=== PATIENT | male | born 1960 | race Caucasian/White ===

== ENCOUNTER 2020-01-09 06:05 | Inpatient (IN) | payer MEDICAID, SELFPAY ==
[~2020-01-09] VITALS: Ht 170.2 cm; Wt 49.0 kg
[2020-01-09] VITALS (25 sets, daily range): BP systolic 81–148; BP diastolic 52–79
--- NOTE | 2020-01-09 06:05 | NUR ---
PT BIBA ALS. TAKEN TO BED 2. RT AT BEDSIDE.
[2020-01-09] MEDS ORDERED: NACL 0.9% 1,000 ML IV ONE (06:15)
[2020-01-09] MEDS ORDERED: MEROPENEM 1,000 MG in NACL 0.9% 100 ML IV ONE (06:15)
[2020-01-09] MEDS ORDERED: VANCOMYCIN 1,000 MG in DEXTROSE 5% 250 ML IV ONE (06:15)
[2020-01-09] MEDS ORDERED: MEROPENEM 1,000 MG VIAL IV ONE (06:18)
--- NOTE | 2020-01-09 06:30 | NUR ---
59 YO M [place] [facility] [facility] A POOR HISTORIAN. PER REPORT PT WAS DSATING IN LOW TO MID 80S [place] [facility] [place] WAS SENT TO ER. PT PRESENTS TO ER WITH TRACH IN PLACE. PT WAS IMMEDIATELY PLACED ON VENTILATOR BY RT AND SET ON HIS REGULAR VENT SETTINGS. S1 S2 HEARD. LUNG SOUNDS ARE CLEAR THROUGHOUT. EQUAL CHEST RISE AND FALL. PT APPEARS ANXIOUS, RESTLESS, AND DIAPHORETIC. PER REPORT PT TESTED POSITIVE FOR GONZALEZ VIRUS IN OCTOBER AND TESTED NEGATIVE FOR GONZALEZ VIRUS IN DECEMBER. PT PLACED ON WINDOWS SERVER ENGINEER. BED LCOKED AND IN LOWEST POSITION. SIDE RAILS X2. UNKNOWN MED HX UNKNOWN RX NKA
--- NOTE | 2020-01-09 06:30 | NUR ---
BLOOD DRAWN AND TAKEN TO LAB.
[2020-01-09 06:34] LABS: BASOPHILS # (AUTO) 0.1 K/uL (0.00-0.22); BASOPHILS % (AUTO) 0.3 % (0.0-2.0); EOSINOPHILS # (AUTO) 0.1 K/uL (0-0.4); EOSINOPHILS % (AUTO) 0.5 % (0.0-4.0); HEMATOCRIT 32.7 % (36-52); HEMOGLOBIN 10.5 g/dL (12.0-18.0); LYMPHOCYTES # (AUTO) 1.2 K/uL (2.0-11.5); LYMPHOCYTES % (AUTO) 7.8 % (20.5-51.1); MEAN CORPUSCULAR HEMOGLOBIN 30 pg (27-31); MEAN CORPUSCULAR HGB CONC 32 g/dL (33-37); MEAN CORPUSCULAR VOLUME 91.9 fL (80-94); MONOCYTES % (AUTO) 6.2 % (1.7-9.3); NEUTROPHILS # (AUTO) 13.2 K/uL (1.8-7.7); NEUTROPHILS % (AUTO) 85.2 % (42.2-75.2); PLATELET COUNT (AUTO) 523 K/uL (140-450); RED BLOOD CELL COUNT(AUTO) 3.56 MIL/uL (4.20-6.10); RED CELL DISTRIBUTION WIDTH 15.8 % (11.6-13.7); WHITE BLOOD COUNT (AUTO) 15.5 K/uL (4.8-10.8)
--- NOTE | 2020-01-09 06:41 | NUR ---
RAD AT BEDSIDE.
[2020-01-09] MEDS ORDERED: AMIO200T5 GT (06:54)
[2020-01-09] MEDS ORDERED: DOCU-299 GT (06:54)
[2020-01-09] MEDS ORDERED: APIX5TAB GT (06:54)
[2020-01-09] MEDS ORDERED: PRO5 GT (06:54)
[2020-01-09] MEDS ORDERED: NUTR-583 GT (06:54)
[2020-01-09] MEDS ORDERED: ACET-2619 GT (06:54)
[2020-01-09] MEDS ORDERED: INSU100S5 SQ (06:54)
[2020-01-09 07:03] LABS: PROTHROMBIN TIME 10.5 secs (10.8-13.4)
[2020-01-09 07:08] LABS: ALBUMIN 2.3 g/dL (3.4-5.0); ANION GAP 9.3 (8-16); CARBON DIOXIDE 36.2 mmol/L (21-32); CREATININE 0.6 mg/dL (0.6-1.3); POTASSIUM 4.5 mmol/L (3.5-5.1); TOTAL BILIRUBIN 0.3 mg/dL (0.0-1.0)
[2020-01-09] MEDS ORDERED: ACETAMINOPHEN 325 MG TAB PO PRN (07:10)
[2020-01-09] MEDS: NACL 0.9% 1,000 ML IV SCH ×2 (07:10→20:09)
[2020-01-09] MEDS ORDERED: ONDANSETRON 4 MG/2 ML VIAL IM/IVP PRN (07:10)
[2020-01-09] MEDS ORDERED: DOCUSATE SODIUM 100 MG GELCAP PO PRN (07:10)
--- NOTE | 2020-01-09 07:30 | NUR ---
REPORT GIVEN TO MOMO SIEGEL. TRANSFER OF CARE AT THIS TIME.
--- NOTE | 2020-01-09 07:33 | NUR ---
RECEIVED REPORT FROM MOMO TSAI AND [facility]
[2020-01-09] MEDS ORDERED: LORazepam 2 MG/ML VIAL IVP ONE (07:50)
--- NOTE | 2020-01-09 08:16 | NUR ---
PT LAYING IN BED AND APPEARS TO BE ANXIOUS. PT IS DIAPHORETIC AT THIS TIME. BOTH SIDE RAILS UP AND BED IN LOWEST POSITION FOR SAFETY.
--- NOTE | 2020-01-09 08:52 | NUR ---
TRANSFERRED TO ICU-2 ON VENTILATOR WITH SAME SETTINGS WITH OXYGEN LINE CONNECTED TO E-TANK SATURATION 98% TOLERATED TRANSFER WELL WITHOUT COMPLICATIONS
--- NOTE | 2020-01-09 09:00 | NUR ---
RECEIVED PT FROM ER. PT AAOX0, AGITATED, DR LUCIA NOTIFIED VIA PHONE. RESPIRATIONS SHALLOW AND LABORED ON TRACH TO VENT IN ACPC MODE O2 100%, R14 PEEP 14. SKIN INTACT. IV SITE IN R FA 20G PATENT AND ASYMPTOMATIC INFUSING PER ORDER. WAHL IN PLACE. G TUBE IN PLACE. PT PRESENTS WITH FEVER OF 101.3, TYLENOL GIVEN AND COOLING MEASURES IN PLACE, WILL REASSESS. DROPLET PRECAUTIONS IN PLACE FOR R/O COVID-19. PT HAD BOWEL MOVEMENT, BROWN FORMED WITH BLOOD. SAFETY MEASURES IN PLACE, BED IN LOW POSITION. WILL MONITOR CLOSELY.
--- NOTE | 2020-01-09 09:04 | NUR ---
Patient will be admitted to care of DR MURRAY. Admited to ICU. Will go to room 8. Belongings list completed. Report to MOMO BELTRAN.
--- NOTE | 2020-01-09 09:33 | NUR ---
PATIENT HAS BEEN SCREENED AND CATEGORIZED HIGH NUTRITION RISK. PATIENT WILL BE SEEN WITHIN 1-2 DAYS OF ADMISSION. 01/09/20-01/10/[address]
[2020-01-09 10:02] LABS: CHOL/HDL RATIO 3.4 (1-4.5); FREE T4 (FREE THYROXINE) 1.52 ng/dL (0.76-1.46); MAGNESIUM 2.1 mg/dL (1.8-2.4); THYROID STIMULATING HORMONE 2.42 uIU/mL (0.34-3.74)
--- NOTE | 2020-01-09 10:05 | NUR ---
CALLED TO ICU DUE TO PT DESATURATING INTO 70%. PT ON A/C VC PEAK PRESSURING IN 60'S. PT SWITCHED TO A/C PC Pinsp 18, R 14, iTIME 0.60 DUE TO INVERSE I:E RATIO AND FIO2 100%. PT TACHYPNEIC IN 40'S AND VERY AGITATED MOVING AROUND IN BED.
--- NOTE | 2020-01-09 10:28 | NUR ---
PEEP INCREASED TO [id number] DUE TO DESATURATION. WILL CONTINUE TO MONITOR.
--- NOTE | 2020-01-09 10:33 | NUR ---
SPOKE W/ DR. LUCIA IN REGARDS OF RESTRAINTS.
--- NOTE | 2020-01-09 10:40 | NUR ---
CALLED NOTIFIED DR. LUCIA THAT PATIENT IS VERY AGITATED RESTLESS AND DIAPHORETIC. HESAID HE AWARE AND WORKING ON IT.
[2020-01-09] MEDS ORDERED: MIDAZOLAM MDV 100 MG in NACL 0.9% 80 ML IV PRN (10:45)
[2020-01-09 10:51] LABS: APPEARANCE,URINE CLEAR (CLEAR); BILIRUBIN,URINE NEGATIVE (NEGATIVE); BLOOD, URINE TRACE-I (NEGATIVE); COLOR,URINE YELLOW (YELLOW); LEUKOCYTE ESTERASE ,URINE NEGATIVE (NEGATIVE); NITRITE, URINE NEGATIVE (NEGATIVE); PH,URINE 5.5 (5.0-9.0); UGLUCOSE NEGATIVE (NEGATIVE)
[2020-01-09] MEDS ORDERED: VANCOMYCIN 1,000 MG in DEXTROSE 5% 250 ML IV SCH (10:55)
[2020-01-09] MEDS ORDERED: ALBUTEROL SULFATE/IPRATROPIU 3 ML SOL IH PRN (11:00)
[2020-01-09] MEDS ORDERED: MORPHINE SULFATE 2 MG/ML SYR IVP PRN (11:10)
[2020-01-09] MEDS ORDERED: KCL 20 MEQ/WATER INJ PREMIX 200 ML IV PRN (11:10)
[2020-01-09 11:21] LABS: BARBITURATE, URINE NEGATIVE ng/ml (NEG <=200); BENZODIAZEPINE, URINE POSITIVE ng/mL (NEG <=200); CANNABINOID, URINE NEGATIVE ng/mL (NEG <=50); COCAINE, URINE NEGATIVE ng/mL (NEG <=300); OPIATE, URINE NEGATIVE ng/mL (NEG <=2000); PHENCYCLIDINE SCREEN,URINE NEGATIVE ng/mL (NEG <=25)
--- NOTE | 2020-01-09 11:39 | NUR ---
VENT ADJUSTMENTS MADE PER AND ABG RESULTS. A/C PC Pinsp 22, R18, PEEP 12 AND FIO2 90%. KEEP SPO2 >90% PT SPO2 99% AT THIS TIME. WILL CONTNUE TO MONITOR. ADEQUATE VT FOR PT BASED ON IBW.
--- NOTE | 2020-01-09 11:42 | NUR ---
PT REPOSITIONED AT THIS TIME, VAP ORAL CARE GIVEN. TEMP RETAKEN, 98.9 PT NO LONGER AFEBRILE.
[2020-01-09] MEDS: PIPERACILLIN/TAZOBACTAM 3.375 GM in DEXTROSE 5% 50 ML IV SCH ×2 (12:00→18:00)
[2020-01-09] MEDS ORDERED: MORPHINE SULFATE 2 MG/ML SYR IVP SCH (12:00)
--- NOTE | 2020-01-09 13:09 | NUR ---
HELD MORPHINE FOR AGITATION SINCE PT IS NO LONGER AGITATED AFTER LOWERING TEMPERATURE. WILL CONTINUE TO MONITOR.
[2020-01-09] MEDS ORDERED: PROPOFOL 1000 MG/100 ML PREMIX 100 ML IV PRN (13:15)
[2020-01-09] MEDS: ALBUTEROL SULFATE/IPRATROPIU 3 ML SOL IH SCH ×2 (13:18→19:29)
--- NOTE | 2020-01-09 15:49 | NUR ---
PT IN BED ASLEEP, NO DISTRESS NOTED. MEDICATIONS ADMINISTERED PER ORDER. WILL CONTINUE TO MONITOR.
--- NOTE | 2020-01-09 16:50 | NUR ---
PER ABG RESULTS VENT CHANGES MADE: PC Pinsp 22, R18, PEEP 10 AND FIO2 60%. NURSE AWARE.
--- NOTE | 2020-01-09 17:49 | NUR ---
PT REMOVED IV, IV INSERTED IN R AC 20G PATENT AND FLUSHED. VAP ORAL CARE GIVEN. REPOSITIONED AT THIS TIME. SAFETY MEASURES IN PLACE.
--- NOTE | 2020-01-09 18:39 | NUR ---
ZOSYN ADMINSITERED PER ORDER
--- NOTE | 2020-01-09 19:15 | NUR ---
REPORT GIVEN TO NIGHT NURSE FOR CONTINUITY OF CARE.
--- NOTE | 2020-01-09 19:30 | NUR ---
PT LYING IN BED, AWAKE. A/O X1. FRENCH SPEAKING ONLY. DENIES PAIN AT THIS TIME. TRACH TO VENT WITH SETTINGS FOLLOWS: ACPC: FIO2 55%, RT 18, PEEP 10. SPO2 100%. LUNG SOUNDS COARSE THROUGHOUT. NO JVD OBSERVED. + S1, S2 UPON AUSCULTATION. BOWEL SOUNDS ACTIVE X4 WITH G-TUBE IN PLACE INFUSING GLUCERNA 1.2 @ 10ML/HR, WITH A GOAL OF 40 ML/HR. + PLACEMENT VERIFIED VIA AIR BOLUS. ZERO RESIDUAL NOTED. ABD SOFT, NON-DISTENDED, AND NON-TENDER. WAHL IN PLACE DRAINING CLEAR, STRAW-COLORED, URINE TO GRAVITY. 20G PERIPHERAL IV WITH SALINE-LOCK TO RT AC PATENT INFUSING NS @ 85 ML/HR. SOFT WRIST RESTRAINTS NOTED D/T PT ATTEMPTING TO REMOVE IV AND TUBING. NO INJURIES NOTED, CAP REFILL WITHIN 3 SEC. PT ABLE TO MOVE ALL EXTREMITIES WITH DECREASED STRENGTH NOTED TO BLE. PEDAL PULSES PALPABLE. SKIN WARM, DRY, AND INTACT. SAFETY PRECAUTIONS IN PLACE WITH BED LOW AND LOCKED. CALL LIGHT IN EASY REACH. WILL CONT TO MONITOR FOR CHANGES.
[2020-01-09] MEDS ORDERED: SODIUM FERRIC GLUCONATE 125 MG in NACL 0.9% 100 ML IV SCH (20:00)
[2020-01-09] MEDS ORDERED: PANTOPRAZOLE 40 MG INJ VIAL IVP SCH (20:05)
[2020-01-09] MEDS ORDERED: CRUSHER, PILL MC ONE (20:17)
[2020-01-09] MEDS: APIXABAN 2.5 MG TAB GT SCH (21:39)
--- NOTE | 2020-01-09 22:20 | NUR ---
2ND COVID SWAB COLLECTED @ THIS TIME, AND TAKEN TO LAB. AWAITING RESULTS.
[2020-01-10] VITALS (19 sets, daily range): BP systolic 86–108; BP diastolic 50–65
[2020-01-10] MEDS: PIPERACILLIN/TAZOBACTAM 3.375 GM in DEXTROSE 5% 50 ML IV SCH ×5 (00:04→23:49)
--- NOTE | 2020-01-10 00:30 | NUR ---
VAP ORAL CARE PROVIDED AT THIS TIME. FLACC 0. REPOSITIONED WITH PRESSURE AREAS OFFLOADED. WILL CONT TO MONITOR FOR CHANGES.
[2020-01-10] MEDS: ALBUTEROL SULFATE/IPRATROPIU 3 ML SOL IH SCH ×4 (01:33→20:04)
[2020-01-10] MEDS: HYDROcodone/APAP 7.5/325 MG 1 TAB PO PRN (02:11)
--- NOTE | 2020-01-10 02:15 | NUR ---
FLACC 5. REPOSITIONED, NON-PHARMACOLOGIC INTERVENTIONS INEFFECTIVE. PRN NORCO ADMINISTERED ORDERED. NO ASE AT THIS TIME. SAFETY PRECAUTIONS IN PLACE. BED LOW AND LOCKED. CALL LIGHT REMAINS WITHIN REACH. WILL FOLLOW-UP.
[2020-01-10] MEDS: NACL 0.9% 1,000 ML IV SCH ×2 (05:34→17:25)
--- NOTE | 2020-01-10 05:34 | NUR ---
INDY HUNG AND RUNNING. PT TOLERATING WELL.
[2020-01-10 06:30] LABS: ANION GAP 8.1 (8-16); CREATININE 0.6 mg/dL (0.6-1.3); POTASSIUM 4.1 mmol/L (3.5-5.1)
--- NOTE | 2020-01-10 06:30 | NUR ---
DR LUCIA AT BEDSIDE AT THIS TIME. UPDATED ON PT CONDITION.
[2020-01-10 06:34] LABS: BASOPHILS % (AUTO) 0.3 % (0.0-2.0); EOSINOPHILS # (AUTO) 0.1 K/uL (0-0.4); EOSINOPHILS % (AUTO) 0.5 % (0.0-4.0); HEMATOCRIT 24.5 % (36-52); HEMOGLOBIN 7.9 g/dL (12.0-18.0); LYMPHOCYTES # (AUTO) 1.6 K/uL (2.0-11.5); LYMPHOCYTES % (AUTO) 12.2 % (20.5-51.1); MEAN CORPUSCULAR HEMOGLOBIN 30 pg (27-31); MEAN CORPUSCULAR HGB CONC 32 g/dL (33-37); MEAN CORPUSCULAR VOLUME 94.1 fL (80-94); MONOCYTES % (AUTO) 7.4 % (1.7-9.3); NEUTROPHILS # (AUTO) 10.6 K/uL (1.8-7.7); NEUTROPHILS % (AUTO) 79.6 % (42.2-75.2); PLATELET COUNT (AUTO) 347 K/uL (140-450); RED CELL DISTRIBUTION WIDTH 15.6 % (11.6-13.7); WHITE BLOOD COUNT (AUTO) 13.3 K/uL (4.8-10.8)
[2020-01-10 06:49] LABS: MAGNESIUM 1.9 mg/dL (1.8-2.4); PHOSPHORUS 3.5 mg/dL (2.5-4.9)
--- NOTE | 2020-01-10 07:10 | NUR ---
PT REMAINS ON DOCUMENTED SETTINGS, VENT CHECK DONE, SX: BLOOD TINGE SECRETIONS, TRACH IS SECURED AND INTACT. VENT IS PLUGGED INTO RED OUTLET, ALARMS ON AND FUNCTIONING, AMBU BAG AT BEDSIDE.
--- NOTE | 2020-01-10 07:15 | NUR ---
REPORT GIVEN TO DAYSHIFT RN FOR CONTINUITY OF CARE.
--- NOTE | 2020-01-10 07:16 | NUR ---
RECEIVED BEDSIDE REPORT FROM MACHINE LEAD BURNER NURSE, PT STABLE, NO DISTRESS NOTED, AWAKE ALERT, ABLE TO LET NEEDS KNOWN, PT ON TRACH TO VENT, ACPC FIO2 55% PEEP 10, O2 SAT 100%, IV TO R FA 20G, PATENT, INTACT, INFUSING WELL, PT CALM AND COOPERATIVE, GT IN PLACE WITH FEEDING AT 20ML/HR, TOLERATING WELL, RESIDUAL 5ML, WAHL CATH IN PLACE DRAINING YELLOW URINE. PT ON RESTRAINTS, NO S/S OF INJURY NOTED, INITIAL ASSESSMENT DONE, ALL SAFETY PRECAUTION MET, CALL LIGHT WITHIN REACH, WILL CONTINUE TO MONITOR.
[2020-01-10 08:07] LABS: FOLIC ACID > 20.00 ng/mL (>3.0); T4 (THYROXINE) 8.6 ug/dL (4.5-12.0)
--- NOTE | 2020-01-10 08:52 | NUR ---
DISCHARGE PLANNING: THIS IS A 59 Y/O MALE PATIENT FROM [facility], WHO WAS BROUGHT IN DUE TO SOB, DESATURATION AND FEVER. PAST MEDICAL HISTORY INCLUDE A FIB, CHRONIC RESPIRATORY FAILURE, DYSPHAGIA, DM, COVID 19. INITIAL DIAGNOSIS OF RESPIRATORY FAILURE, PNA, R/O COVID 19. CURRENT LABS INCLUDE WBC 13.3, H/H 7.9/24.5, NA/K 139/4.1, BUN/CREA 16/0.6. UDS SHOWED POSITIVE FOR BENZO. COVID (-) X1, 2ND TEST PENDING. INF A AND B (-). ON ZOSYN. CHEST X RAY ON ADMISSION SHOWED BILATERAL PATCHY INFILTRATES, COARSE INTERSTITIAL MARKINGS. PULMO AND CARDIO CONSULTS IN PLACE. DC PLAN BACK TO [facility] ONCE STABLE. Addendum: 01/11/20 at 1148 by Zenaida Stanton ON TELE STATUS, TRACH TO VENT, FIO2 30%, O2 SAT94%. CURRENT LABS INCLUDE WBC 13.0, H/H 8.1/25.6, NA/K 142/3.8, BUN/CREA 11/0.5. 2ND COVID TEST (+). ON ZOSYN AND ELIQUIS. SPUTUM CS SHOWED SERRATIA MARCESCENS. CARDIO, ID AND PULMO CONSULTS IN PLACE. Addendum: 01/13/20 at 0849 by Zenaida Stanton PER ALTAGRACIA OF [facility], THEY ARE NOT A COVID FACILITY AND NOT ABLE TO TAKE THE PATIENT BACK. I ASKED HER IF THEY CAN HELP FIND PLACEMENT FOR THE PATIENT. SHE STATED SHE REACHED OUT TO [facility] LUNA AND WILL FOLLOW UP TODAY. CONTACTED EVITA LUNA AT [phone], REQUESTED TO GET TRANSFERRED TO [facility], NO ANSWER. LEFT MESSAGE WILL FOLLOW UP. Addendum: 01/13/20 at 1105 by Mignon Man FAXED PATIENTS CLINICALS TO EVITA LUNA, [facility], AND [facility]. SPOKE [facility] IRMA AT [phone], FAX # [phone]. SHE STATED THAT THEY ACCEPT COVID POSITIVE PATIENTS WILL FOLLOW UP. Addendum: 01/13/20 at 1130 by Mignon Man CM FOLLOWED UP WITH IRMA AT [facility] THEY ARE REVIEWING AND WILL CONTACT ME BACK. SHE STATED THAT SHE DOES NOT BELIEVE THEY COULD ACCEPT THIS PATIENT DUE TO HIS INSURANCE Addendum: 01/13/20 at 1631 by Zenaida Stanton CM PER ALTAGRACIA [facility], SHE FOUND A [facility] [phone] THAT IS ABLE TO ACCEPT COVID POSITIVE PATIENTS. SHE STATED THAT SHE ALREADY FAXED THE REFERRAL TO [phone] AND THEY ARE IN THE PROCESS OF REVIEWING IT. WILL UPDATE US IF THEY ARE ABLE TO ACCEPT. Addendum: 01/13/20 at 4318 by Zenaida Stanton CM CHARGE NURSE AND DR. JOSÉ MIGUEL MCMANUS AWARE. Addendum: 01/14/20 at 1413 by Liz Aquino CM DC PLANNING: CALLED ALTAGRACIA HINES [facility] STATED [facility] TOLD HER THERE IS NO ONE ON THE WEEKEND TO REVIEW THE CASE AND TO FOLLOW UP ON THURSDAY. PER ALTAGRACIA WILL LOOK FOR ANOTHER FACILITY AND CALL BACK CM TO FOLLOW. Addendum: 01/16/20 at 1005 by Liz Aquino CM DC PLANNING CALLED [facility] [phone] SPOKE WITH MICHAEL JAMIL PT'S CLINICAL , PER MICHAEL REQUESTED IV ABX TO BE CHANGED TO PO WILL DISCUSS WITH THE COMPLAINT OPERATOR AND WILL CALL BACK SPOKE WITH DR KHARI COFFEY , LEFT A MESSAGE FOR MICHAEL MILLER TO FOLLOW. Addendum: 01/16/20 at 1147 by Liz Aquino CM DC PLANNING CALLED [facility] SPOKE WITH MICHAEL AND NOTIFIED HER OK WITH BACTRIM DS PO BID FOR 7 DAYS. PER MICHAEL ARRANGING THE ROOMS AND WAITING FOR THE ADMIN TO SAY ISHMAEL MILLER TO FOLLOW. Addendum: 01/16/20 at 1608 by Liz Aquino CM dc planning: [facility]ED [facility] SPOKE WITH MICHAEL STATED SHE IS UNABLE TO TAKE PATIENT TODAY BECAUSE OF STAFFING ISSUE. CALLED ALTAGRACIA AT [facility] NOTIFIED HER MICHAEL IS NOT TAKING PATIENT PER ALTAGRACIA THEY DON'T HAVE ISOLATION BED WILL TALK TO HER ADMINISTRATION AND CALL BACK. Addendum: 01/16/20 at 1612 by Liz Aquino CM DC PLANNING CHECKED WITH MINO AT [facility] STATED THEY DON'T HAVE SUB ACUTE BUT WILL CHECK WITH THE [facility] . SPOKE WITH DR MURRAY STATED HE WILL CALL [facility] ADMINISTRATION. PER DR LUCIA [facility] WILL TAKE THE PATIENT TOMORROW. CM TO FOLLOW. Addendum: 01/16/20 at 1656 by Mignon Man CM FAXED PATIENTS PACKET TO [facility]. Addendum: 01/17/20 at 0926 by Liz Aquino CM DC PLANNING: CALLED [facility] ,SPOKE WITH MICHAEL STATED WILL TAKE THE PATIENT TODAY BUT SHE CAN'T GIVE ME THE BED NUMBER NOW BECAUSE SHE NEEDS TO CHANGE ROOMS, SHE ALSO TALKED TO ALTAGRACIA AT [facility] AND PROMISED SHE WILL TAKE PATIENT TODAY. CALLED MINO AT [facility] STATED DON'T HAVE SUB-ACUTE BUT WILL TRY TO ONE OF THEIR SISTER'S SNF AND WILL CALL BACK . FAXED TO NIRALI MARIE , PAUL TO FOLLOW Addendum: 01/17/20 at 1537 by Liz Aquino CM DC PLANNING: RECEIVED A CALL FROM [facility] SPOKE WITH MICHAEL STATED WE CAN ARRANGED TRANSPORT PASSENGER BOOKING CLERK TIME 6PM STILL ARRANGING THE ROOM ,WILL CALL BACK ONCE THE ROOM IS READY. ARRANGED TRANSPORT WITH [facility] PASSENGER BOOKING CLERK TIME 6PM CM TO FOLLOW Addendum: 01/17/20 at 1608 by Liz Aquino CM DC PLANNING: PT IS ACCEPTED AT [facility] THE ADDRESS IS [address] [place] [address] TEL # [phone]. PT IS GOING TO ROOM 130A PASSENGER BOOKING CLERK TIME 6PM WITH [facility]. NOTIFIED PATRICIA BARR.
[2020-01-10] MEDS: APIXABAN 2.5 MG TAB GT SCH ×2 (09:25→21:07)
[2020-01-10] MEDS: PANTOPRAZOLE 40 MG INJ VIAL IVP SCH (09:25)
[2020-01-10] MEDS: AMIODARONE 200 MG TAB GT SCH (09:25)
--- NOTE | 2020-01-10 09:25 | NUR ---
DUE MEDICATION ADMINISTERED, PT TOLERATED WELL, FC DONE. PT RESTING, CALL LIGHT WITHIN REACH, WILL CONTINUE TO MONITOR.
--- NOTE | 2020-01-10 11:03 | NUR ---
SALES AND MARKETING EXECUTIVE NOTE: Basic Screen: Yes High Risk DC Screen [place]: JESS HERNANDES Home Relationship: SON Pre-Admission Living Arrangements: SNF Other: [facility] Prior ADL Total/Dependent Current Home Health Name/Tel: N/A Current DME/02 Name/Tel: BED BOUND Current Hospice Name/Tel: N/A Current Dialysis Name/Tel: N/A Healthcare Decision Maker: Patient Advance Directive No Physician Orders for Life Sustaining Treatment Form No Patient/Family Have Educational Needs No Discipline: Case Mgt/Social Svcs Tentative Discharge Plan/Destination: SNF/ECF Other: [facility] Will require assistance post discharge: No Referred to Bomb Loader: No Tentative Discharge Plan Summary: PATIENT IS A 59-YEAR-OLD MALE ADMITTED FOR RESPIRATORY FAILUREL. PATIENT HAS PMHX OF AFIB, CHRONIC RESPIRATORY FAILURE, DYSPHAGIA, COVID 19, AND DM. PATIENT WAS ADMITTED FROM [facility]. SW CONTACTED FRIEDA FROM [facility] [phone]. PER FRIEDA, PATIENT IS LONGTERM AND ON A BED HOLD. PATIENT IS ALERT AND CAN MAKE NEEDS KNOWN AND IS ORIENTED ONLY TO TIME AND PLACE. FRIEDA REPORTED THAT PATIENT'S HEALTHCARE DECISION MAKER IS DARYL HERNANDES [phone]. FRIEDA STATED THAT PATIENT IS TRACH TO VENT AND REQUIRES TOTAL ASSISTANCE WITH ADLS. TENTATIVE DISCHARGE PLAN IS FOR PATIENT TO RETURN HOME. NO FURTHER NEEDS IDENTIFIED. Signature: MARIA A PATRICK Date: Jan 10, 2020 Time: 11:02
--- NOTE | 2020-01-10 12:29 | NUR ---
DUE MEDICATION ADMINISTERED, PT TOLERATED WELL, NO DISTRESS NOTED, CALL LIGHT WITHIN REACH, WILL CONTINUE TO MONITOR.
--- NOTE | 2020-01-10 13:20 | NUR ---
TITRATED FIO2 TO 50%. PT SHOW NO SIGN OF DISTRESS AND TOLERATED CHANGE. SPO2 CURRENTLY READING 98% WILL CONTINUE TO MONITOR.
--- NOTE | 2020-01-10 16:13 | NUR ---
01/10/20 INITIAL ASSESSMENT COMPLETED PLEASE REFER TO NUTRITION ASSESSMENT UNDER CARE ACTIVITY FOR ESTIMATED NUTRITIONAL NEEDS. 1. RECOMMEND INCREASING GLUCERNA GOAL RATE TO 45 ML/HR X 24 HR -PROVIDES 1296 CALORIES, 65 GM OF PROTEIN WHICH MEETS 100% OF ESTIMATED NUTRIENT NEEDS 2. RECOMMEND TO CHANGE FREE WATER FLUSH TO [address] TO FOLLOW-UP 2-3 DAYS, HIGH RISK [address]NE SI[address]
--- NOTE | 2020-01-10 16:25 | NUR ---
PT REMAINS ON DOCUMENTED SETTINGS, VENT CHECK DONE. TRACH IS SECURED AND INTACT, NO DISTRESS NOTED AT THIS TIME. VENT PLUGGED INTO RED OUTLET, ALARMS ON AND FUNCTIONING, AMBU BAG AT BEDSIDE.
[2020-01-10 16:52] LABS: FERRITIN 736 ng/mL (30 - 400); TRANSFERRIN 145 mg/dL (200 - 370)
--- NOTE | 2020-01-10 18:25 | NUR ---
DUE MEDICATION ADMINISTERED, PT TOLERATED WELL, NO DISTRESS NOTED, CLEANED PT, CALL LIGHT WITHIN REACH, WILL CONTINUE TO MONITOR.
--- NOTE | 2020-01-10 19:13 | NUR ---
ENDORSED PT TO DEBEADER NURSE, PT STABLE, NO DISTRESS NOTED.
--- NOTE | 2020-01-10 19:14 | NUR ---
REPORT RECEIVED FROM AM NURSE AT BEDSIDE. PT IN STABLE CONDITION. AAOX1-2. FLACC 0. NO SOB ON TRACH TO VENT. VENT SETTINGS AC P/C FIO2@45%, RR 18, PEEP 10, AND O2 SAT@100%. AFEBRILE. PT IS BEDBOUND. PT HAS RESTRAINTS. PT HAS GTUBE. GTUBE FEEDINGS GLUCERNA 1.2@45ML/HR WITH 100ML H2O FLUSH Q6H. IV SITE R FA 20G RUNNING NS@100ML/HR PATENT AND INTACT. SKIN WARM, DRY, AND INTACT WITH NO OPEN WOUNDS. BED LOCKED IN LOW POSITION. CALL BAUTISTA WITHIN REACH. SAFETY PRECAUTION IN PLACE. ALL NEEDS MET AT THIS TIME.
--- NOTE | 2020-01-10 20:03 | NUR ---
RECEIVED REPORT FROM AM SHIFT. PATIENT SEEN AND ASSESSED. PATIENT TRACH TO VENT WITH PORTEX SIZE 7 AND SECURED WITH TRACH TIE. AUSCULTATION REVEALS BILATERAL COARSE BREATH SOUNDS. NOTICED ADEQUATE BILATERAL CHEST RISE AND FALL. PATIENT ON VENT SETTINGS AC/PC 22,R 18, +10, 45% WITH SPO2 OF 97%. VENT PLUGGED IN RED OUTLET, HOB > 30 DEGREES, AMBU BAG AT BEDSIDE, AND ALARMS SET AND AUDIBLE. PATIENT IS IN NO RESPIRATORY DISTRESS AT THIS TIME. HHN TX GIVEN ORDERED VIA INLINE AND PATIENT TOLERATED WELL WITH NO ADVERSE REACTION. SUCTION PINK TINGE SECRETIONS FROM TRACH TUBE. AIRWAY IS PATIENT. WILL CONTINUE TO MONITOR PATIENT.
--- NOTE | 2020-01-10 21:07 | NUR ---
NANCI GIVEN THROUGH SOFYAUBE. GLUCERNA FEEDING GIVEN. Addendum: 01/10/20 at 2125 by Lupillo Green RN ORAL CARE GIVEN. Addendum: 01/10/20 at 2227 by Lupillo Green RN FEEDING CHANGED.
--- NOTE | 2020-01-10 21:56 | NUR ---
TITRATED FiO2 FROM 45% TO 40% WITH SPO2 OF 97%. PATIENT TOLERATING WELL. WILL CONTINUE TO MONITOR PATIENT.
--- NOTE | 2020-01-10 23:49 | NUR ---
INDY HUNG AND RUNNING.
[2020-01-11] VITALS (18 sets, daily range): BP systolic 91–138; BP diastolic 52–82
--- NOTE | 2020-01-11 | NUR ---
ORAL CARE DONE.
[2020-01-11] MEDS: ALBUTEROL SULFATE/IPRATROPIU 3 ML SOL IH SCH ×2 (01:35→07:30)
--- NOTE | 2020-01-11 02:45 | NUR ---
PT WATCHING TV COMFORTABLY IN BED. NO S/S OF DISTRESS NOTED.
[2020-01-11] MEDS: NACL 0.9% 1,000 ML IV SCH ×2 (05:00→17:00)
[2020-01-11] MEDS: PIPERACILLIN/TAZOBACTAM 3.375 GM in DEXTROSE 5% 50 ML IV SCH ×2 (05:30→12:44)
--- NOTE | 2020-01-11 05:30 | NUR ---
INDY HUNG AND RUNNING.
[2020-01-11 06:15] LABS: BASOPHILS % (AUTO) 0.2 % (0.0-2.0); EOSINOPHILS # (AUTO) 0.2 K/uL (0-0.4); EOSINOPHILS % (AUTO) 1.2 % (0.0-4.0); HEMATOCRIT 25.6 % (36-52); HEMOGLOBIN 8.1 g/dL (12.0-18.0); LYMPHOCYTES # (AUTO) 3.2 K/uL (2.0-11.5); LYMPHOCYTES % (AUTO) 24.7 % (20.5-51.1); MEAN CORPUSCULAR HEMOGLOBIN 30 pg (27-31); MEAN CORPUSCULAR HGB CONC 32 g/dL (33-37); MEAN CORPUSCULAR VOLUME 94.1 fL (80-94); MONOCYTES # (AUTO) 0.9 K/uL (0.8-1.0); MONOCYTES % (AUTO) 6.6 % (1.7-9.3); NEUTROPHILS # (AUTO) 8.7 K/uL (1.8-7.7); NEUTROPHILS % (AUTO) 67.3 % (42.2-75.2); PLATELET COUNT (AUTO) 419 K/uL (140-450); RED BLOOD CELL COUNT(AUTO) 2.72 MIL/uL (4.20-6.10); RED CELL DISTRIBUTION WIDTH 15.8 % (11.6-13.7)
--- NOTE | 2020-01-11 06:39 | NUR ---
PATIENT STILL REMAINS ON VENT SUPPORT. AIRWAY IS PATENT. EQUAL CHEST RISE AND FALL. TUBE IS SECURED AND INTACT. PATIENT IN NO DISTRESS AT THIS TIME. WILL CONTINUE TO MONITOR.
[2020-01-11 06:40] LABS: ANION GAP 10.9 (8-16); CARBON DIOXIDE 33.9 mmol/L (21-32); CREATININE 0.5 mg/dL (0.6-1.3); POTASSIUM 3.8 mmol/L (3.5-5.1)
--- NOTE | 2020-01-11 07:08 | NUR ---
REPORT GIVEN TO AM NURSE AT BEDSIDE. PT IN STABLE CONDITION.
--- NOTE | 2020-01-11 07:09 | NUR ---
RECEIVED BEDSIDE REPORT FROM INDEPENDENT AGENT MUSIC EDUCATION NURSE, PT STABLE, NO DISTRESS NOTED, ALERT, AWAKE, ABLE TO FOLLOW COMMANDS, PT ON TRACH TO VENT, FIO2 40%, NO SOB NOTED, SATURATION AT 99%, IV TO R FA 20G PATENT INTACT, INFUSING WELL, G TUBE IN PLACE, WITH FEEDING, TOLERATING WELL, WAHL CATH IN PLACE, DRAINING TO GRAVITY. PT STATED HAVING PAIN WHEN ASKED, FLACC 6, WILL GIVE PAIN MEDICATION, INITIAL ASSESSMENT DONE, ALL SAFETY PRECAUTION MET, CALL LIGHT WITHIN REACH, WILL CONTINUE TO MONITOR.
--- NOTE | 2020-01-11 07:30 | NUR ---
PT REMAINS ON DOCUMENTED SETTINGS. TRACH IS SECURED AND INTACT. VENT CHECK DONE. SX: BLOOD TINGE SECRETIONS. VENT PLUGGED INTO RED OUTLET, ALARMS ON AND FUNCTIONING, AMBU BAG AT BEDSIDE. WILL CONTINUE TO MONITOR.
[2020-01-11] MEDS: HYDROcodone/APAP 7.5/325 MG 1 TAB PO PRN (07:47)
[2020-01-11] MEDS: AMIODARONE 200 MG TAB GT SCH (09:12)
[2020-01-11] MEDS: APIXABAN 2.5 MG TAB GT SCH ×2 (09:12→21:00)
[2020-01-11] MEDS: ASCORBIC ACID 500 MG TAB PO SCH (09:13)
[2020-01-11] MEDS: PANTOPRAZOLE 40 MG INJ VIAL IVP SCH (09:13)
[2020-01-11] MEDS: ZINC SULF 220 MG CAP PO SCH (09:13)
--- NOTE | 2020-01-11 09:13 | NUR ---
DUE MEDICATION ADMINISTERED, PT TOLERATED WELL, NO DISTRESS NOTED, WILL CONTINUE TO MONITOR.
--- NOTE | 2020-01-11 10:02 | NUR ---
PT CALM AND COOPERATIVE, RESTRAINS TAKEN OFF. PT RESTING, NO DISTRESS NOTED, ASKED PT TO NOT PULL OF ANY EQUIPMENT, PT NODDED UNDERSTANDING. WILL CONTINUE TO MONITOR.
--- NOTE | 2020-01-11 12:44 | NUR ---
ZOSYN DUE ADMINISTERED, PT TOLERATED WELL, NO DISTRESS NOTED, CALL LIGHT WITHIN REACH, WILL CONTINUE TO MONITOR.
--- NOTE | 2020-01-11 15:44 | NUR ---
CLEANED AND REPOSITIONED PT, PT TOLERATED WELL, NO DISTRESS NOTED, CALL LIGHT WITHIN REACH, WILL CONTINUE TO MONTIOR.N
--- NOTE | 2020-01-11 16:35 | NUR ---
PT REMAINS ON DOCUMENTED SETTINGS, TRACH SECURED AND INTACT. VENT CHECK DONE. VENT PLUGGED INTO RED OUTLET, ALARMS ON AND FUNCTIONING, AMBU BAG AT BEDSIDE.
--- NOTE | 2020-01-11 19:25 | NUR ---
ENDORSED PT TO MANUSCRIPTS ARCHIVIST NURSE, PT RESTING, NO DISTRESS NOTED, CALL LIGHT WITHIN REACH.
--- NOTE | 2020-01-11 19:59 | NUR ---
RECEIVED REPORT FROM AM SHIFT. PATIENT SEEN AND ASSESSED. PATIENT TRACH TO VENT WITH PORTEX SIZE 7 AND SECURED WITH TRACH TIE. AUSCULTATION REVEALS BILATERAL COARSE BREATH SOUNDS. NOTICED ADEQUATE BILATERAL CHEST RISE AND FALL. PATIENT ON VENT SETTINGS AC/PC 22,R 18, +10, 35% WITH SPO2 OF 95%. VENT PLUGGED IN RED OUTLET, HOB > 30 DEGREES, AMBU BAG AT BEDSIDE, AND ALARMS SET AND AUDIBLE. PATIENT IS IN NO RESPIRATORY DISTRESS AT THIS TIME. PRN TX NOT INDICATED AT THIS TIME. SUCTION PINK TINGE SECRETIONS FROM TRACH TUBE. AIRWAY IS PATIENT. WILL CONTINUE TO MONITOR PATIENT.
--- NOTE | 2020-01-11 20:00 | NUR ---
RECEIVED REPORT FROM DAY SHIFT RN. PT TRACH TO VENT. A/C PC FIO2 35%, PINSP 22, RATE 18, PEEP 10. SKIN WARM, DRY AND INTACT. ORAL MUCOSA PINK AND MOIST. RESPIRATION EVEN AND UNLABORED. PULSES PALPABLE. WAHL CATHETER PATENT, DRAINING TO GRAVITY. G-TUBE IN PLACE, AUSCULTATED, POSITIVE PLACEMENT. 10 MLS RESIDUALS. ON GLUCERNA 1.2 @ 45MLS/HR WITH FWF OF 100MLS/6HR. PERIPHERAL IV ON THE RIGHT FOREARM 20G INFUSING 100ML/HR NS. DROPLET PRECAUTION MAINTAINED. HOB 30 DEGREES, BED IN LOWEST POSITION, SIDE RAILS UP. PT AFEBRILE. CALL BAUTISTA WITHIN REACH. SAFETY MEASURES OBSERVED. WILL CONTINUE TO MONITOR PT.
--- NOTE | 2020-01-11 22:00 | NUR ---
PT TURNED AND REPOSITIONED. ORAL CARE PROVIDED. CALL LIGHT WITHIN REACH. WILL CONTINUE TO MONITOR.
[2020-01-12] VITALS (17 sets, daily range): BP systolic 117–162; BP diastolic 34–109
[2020-01-12] MEDS: NACL 0.9% 1,000 ML IV SCH ×3 (00:06→18:00)
--- NOTE | 2020-01-12 00:12 | NUR ---
PT RESTING IN BED. NO CONCERNS AND COMPLAINTS MADE. WILL CONTINUE TO MONITOR.
--- NOTE | 2020-01-12 02:00 | NUR ---
TURNED AND REPOSITIONED, ORAL CARE PROVIDED, WAHL CARE, KEILA CARE DONE. NO CONCERNS AND COMPLAINTS MADE.
--- NOTE | 2020-01-12 05:30 | NUR ---
TITRATED PEEP FROM 10 cmH20 TO 8 cmH20 WITH SPO2 OF 93%. DR. SHEPARD WAS NOTIFIED. WILL CONTINUE TO MONITOR.
[2020-01-12 05:58] LABS: BASOPHILS % (AUTO) 0.4 % (0.0-2.0); EOSINOPHILS # (AUTO) 0.1 K/uL (0-0.4); EOSINOPHILS % (AUTO) 1.3 % (0.0-4.0); HEMATOCRIT 24.3 % (36-52); HEMOGLOBIN 7.8 g/dL (12.0-18.0); LYMPHOCYTES # (AUTO) 1.6 K/uL (2.0-11.5); MEAN CORPUSCULAR HEMOGLOBIN 30 pg (27-31); MEAN CORPUSCULAR HGB CONC 32 g/dL (33-37); MEAN CORPUSCULAR VOLUME 92.9 fL (80-94); MONOCYTES # (AUTO) 0.5 K/uL (0.8-1.0); MONOCYTES % (AUTO) 5.9 % (1.7-9.3); NEUTROPHILS # (AUTO) 6.7 K/uL (1.8-7.7); NEUTROPHILS % (AUTO) 74.4 % (42.2-75.2); PLATELET COUNT (AUTO) 417 K/uL (140-450); RED BLOOD CELL COUNT(AUTO) 2.61 MIL/uL (4.20-6.10); RED CELL DISTRIBUTION WIDTH 15.8 % (11.6-13.7)
[2020-01-12] MEDS ORDERED: LORazepam 1 MG TAB PO PRN (06:20)
--- NOTE | 2020-01-12 06:24 | NUR ---
PATIENT STILL REMAINS ON VENT SUPPORT. TRACH CARE COMPLETED. AIRWAY IS PATENT. EQUAL CHEST RISE AND FALL.TUBE IS SECURED AND INTACT. PATIENT IN NO DISTRESS AT THIS TIME. WILL CONTINUE TO MONITOR.
[2020-01-12 06:44] LABS: ANION GAP 8.8 (8-16); CARBON DIOXIDE 32.7 mmol/L (21-32); CREATININE 0.4 mg/dL (0.6-1.3); POTASSIUM 3.5 mmol/L (3.5-5.1)
--- NOTE | 2020-01-12 07:23 | NUR ---
PT STABLE. ENDORSED PT TO DAY SHIFT RN FOR CONTINUITY OF CARE.
--- NOTE | 2020-01-12 07:30 | NUR ---
RECEIVED REPORT FROM SURFACING MACHINE OPERATOR RN. PT TRACH TO VENT. A/C PC FIO2 35%, RATE 18, PEEP 8. PT AAOX2, SKIN WARM, DRY AND INTACT. BMX1 FORMED STOOL, MODERATE AMOUNT. RESPIRATION EVEN AND UNLABORED. PULSES PALPABLE. WAHL CATH DRAINING CLEAR YELLOW URINE. G-TUBE IN PLACE, 0 MLS RESIDUALS. ON GLUCERNA 45MLS/HR WITH FWF OF 100MLS/6HR. PERIPHERAL IV TO THE RIGHT FOREARM, 20G, INFUSING 100ML/HR NS. HOB 30 DEGREES, BED IN LOWEST POSITION, SIDE RAILS UP. AFEBRILE. CALL LIGHT WITHIN REACH.
[2020-01-12] MEDS: AMIODARONE 200 MG TAB GT SCH (08:01)
[2020-01-12] MEDS: FERROUS SULFATE 325 MG TABEC PO SCH (08:01)
[2020-01-12] MEDS: ASCORBIC ACID 500 MG TAB PO SCH (08:01)
[2020-01-12] MEDS: ZINC SULF 220 MG CAP PO SCH (08:01)
[2020-01-12] MEDS: PANTOPRAZOLE 40 MG INJ VIAL IVP SCH (08:01)
[2020-01-12] MEDS: APIXABAN 2.5 MG TAB GT SCH ×2 (08:02→21:00)
--- NOTE | 2020-01-12 08:30 | NUR ---
ORAL CARE DONE, SUCTION PERFORMED, SMALL AMOUNT BLOOD TINGED SECRETION.
--- NOTE | 2020-01-12 09:43 | NUR ---
PT HAS ANOTHER BM, FORM STOOL, MODERATE AMOUNT. PT WAS CLEANED, LINENS CHANGED.
--- NOTE | 2020-01-12 12:30 | NUR ---
PT'S FAMILY SENT A CELLPHONE. GAVE PHONE TO PT AND PT CALLED HIS SON.
--- NOTE | 2020-01-12 16:05 | NUR ---
SMALL AMOUNT OF PASTY STOOL. PT WAS CLEANED, CHUX CHANGED. PT ABLE TO ASSIST TURNING AND FOLLOWING COMMANDS.
--- NOTE | 2020-01-12 19:45 | NUR ---
PT AWAKE SITTING UP IN BED, FOLLOWING COMMANDS. PT HAS TRACH TO VENT @ 35% FIO2, DENIES CP/SOB, WHITE CREAMY SECRETIONS NOTED. DIMINISHED BREATH SOUNDS. NSR 80S, PALPABLE PERIPHERAL EXTREMITIES. ABD SOFT NON DISTENDED. PEG TUBE IN PLACE, PATENT. X 1 BM NOTED SMALL FORMED. WAHL CATH IN PLACE CLEAR YELLOW URINE. SKIN INTACT. IV TO R FA PATENT INTACT. BED LOCKED IN LOWEST POSITION. PT TURNING AND REPOSITIONING SELF. WILL CONTINUE TO OBSERVE.
--- NOTE | 2020-01-12 19:45 | NUR ---
RECEIVED PT ON DOCUMENTED SETTING. VENT PLUGGED INTO RED OUTLET. BMV AT BEDSIDE. TRACH IS SECURED AND INTACT. PT IS IN NO DISTRESS. WILL CONT TO MONITOR
[2020-01-13] VITALS (13 sets, daily range): BP systolic 95–143; BP diastolic 51–78
--- NOTE | 2020-01-13 | NUR ---
PT HAS EYES CLOSED, NO ACUTE DISTRESS NOTED. FLACC 0. WILL CONTINUE MONITOR
[2020-01-13] MEDS: NACL 0.9% 1,000 ML IV SCH ×2 (02:24→20:28)
--- NOTE | 2020-01-13 05:16 | NUR ---
LINEN CHANGED; BATH GIVEN. VAP ORAL CARE DONE. WILL CONTINUE TO OBSERVE.
--- NOTE | 2020-01-13 06:00 | NUR ---
RECEIVED BEDSIDE REPORT FROM KASH BARR. PT TRANSFERRED FROM ICU BED 8 TO ROOM 123A. PT IS CITIZEN OF [place] SPEAKING. PT APPEARS AAOX4 CAN MOUTH WORDS IN [place]. IS TRACH TO VENT. VENT SETTINGS: AC/VC FIO2 35% PEEP 8 RR 12. RR 33 AND SAT WELL 100%. SKIN INTACT. LUNG SOUNDS ARE DIMINISHED AT BASE. RT AT BEDSIDE SUCTION SMALL AMOUNT OF PINK TINGED SECRETIONS. PT WITH GTUBE WITH GLUCERNA AT 45ML/H FWF 100/Q4H. PT REQUESTING TO GET BG CHECKED. IV ON RAC 20G CURRENTLY SL D/T TX. ORDER FOR NS AT 100ML/H. PT IS COVID+. DX PNA. ISOLATION PER PROTOCOL. PT ON IV ABX. ORIENTED PT TO CALL LIGHT, ROOM, STAFF. SAFETY MEASURES ARE IN PLACE. CALL LIGHT IS WITHIN REACH. BELONGINGS WITHIN REACH.
--- NOTE | 2020-01-13 06:00 | NUR ---
REPORT GIVEN TO GEORGE BARR, NO ACUTE DISTRESS NOTED. PT TRANSPORTED TO 123B WITH RT AND RN.
[2020-01-13 06:05] LABS: BASOPHILS % (AUTO) 0.3 % (0.0-2.0); EOSINOPHILS # (AUTO) 0.3 K/uL (0-0.4); EOSINOPHILS % (AUTO) 3.9 % (0.0-4.0); HEMATOCRIT 23.2 % (36-52); HEMOGLOBIN 7.6 g/dL (12.0-18.0); LYMPHOCYTES # (AUTO) 1.8 K/uL (2.0-11.5); LYMPHOCYTES % (AUTO) 24.3 % (20.5-51.1); MEAN CORPUSCULAR HEMOGLOBIN 30 pg (27-31); MEAN CORPUSCULAR HGB CONC 33 g/dL (33-37); MEAN CORPUSCULAR VOLUME 91.6 fL (80-94); MONOCYTES # (AUTO) 0.6 K/uL (0.8-1.0); MONOCYTES % (AUTO) 8.6 % (1.7-9.3); NEUTROPHILS # (AUTO) 4.8 K/uL (1.8-7.7); NEUTROPHILS % (AUTO) 62.9 % (42.2-75.2); PLATELET COUNT (AUTO) 418 K/uL (140-450); RED BLOOD CELL COUNT(AUTO) 2.53 MIL/uL (4.20-6.10); RED CELL DISTRIBUTION WIDTH 15.9 % (11.6-13.7); WHITE BLOOD COUNT (AUTO) 7.6 K/uL (4.8-10.8)
--- NOTE | 2020-01-13 06:20 | NUR ---
IVF NOW INFUSING PER ORDERS. BG 111. GLUCERNA INFUSING PER ORDERS. ALL NEEDS MET AT THIS TIME. CALL LIGHT IS WITHIN REACH.
[2020-01-13 07:02] LABS: ANION GAP 8.5 (8-16); CARBON DIOXIDE 32.1 mmol/L (21-32); CREATININE 0.4 mg/dL (0.6-1.3); POTASSIUM 3.6 mmol/L (3.5-5.1)
--- NOTE | 2020-01-13 07:15 | NUR ---
RECEIVED BEDSIDE REPORT FROM FISH CLEANER MACHINE TENDER RN, GEORGE, FOR CONTINUITY OF CARE. PT. IS ALERT, AWAKE AND IN BED. [place] SPEAKING. AAOX4, ABLE TO MOUTH WORDS IN [place] AND MAKE NEEDS KNOWN. IS TRACH TO VENT. VENT SETTINGS: AC/VC FIO2 35% PEEP 8 RR 12. RR 33 AND SAT WELL 100%. SKIN INTACT. GTUBE IN PLACE WITH GLUCERNA AT 45ML/H WITH WATER FLUSH OF 100ML /Q4H. PT REQUESTING TO GET BG CHECKED. IV ON RAC 20G CURRENTLY WITH NS RUNNING AT 60ML/HR. PT IS COVID+. DX PNA. ISOLATION PER PROTOCOL. ORIENTED PT TO CALL LIGHT, ROOM, STAFF. SAFETY MEASURES ARE IN PLACE. CALL LIGHT IS WITHIN REACH. WILL CONTINUE TO MONITOR.
--- NOTE | 2020-01-13 07:25 | NUR ---
GAVE BEDSIDE REPORT TO DAY RN. PT ENDORSED IN STABLE CONDITION.
--- NOTE | 2020-01-13 08:50 | NUR ---
PT. IS CLEANED, TURNED, AND CHANGED. NO SIGNS OF DISTRESS NOTED. G-TUBE IN PLACE, NO RESIDUAL, FLUSHES WELL. DRESSING IS CHANGED, SHANNON VALVE CHANGED. V/S TAKEN AND IS WITHIN NORMAL LIMITS. PT. SHAKES HEAD FOR NO PAIN. PT. IS ABLE TO FOLLOW COMMANDS. WILL CONTINUE TO MONITOR.
[2020-01-13] MEDS: ASCORBIC ACID 500 MG TAB PO SCH (08:52)
[2020-01-13] MEDS: ZINC SULF 220 MG CAP PO SCH (08:53)
[2020-01-13] MEDS: AMIODARONE 200 MG TAB GT SCH (08:53)
[2020-01-13] MEDS: PANTOPRAZOLE 40 MG INJ VIAL IVP SCH (08:54)
[2020-01-13] MEDS: FERROUS SULFATE 325 MG TABEC PO SCH (08:54)
--- NOTE | 2020-01-13 09:00 | NUR ---
MORNING MEDICATIONS GIVEN. BP 105/76, HR 80. NO SIGNS OF DISTRESS NOTED. WILL CONTINUE TO MONITOR.
[2020-01-13] MEDS: APIXABAN 2.5 MG TAB GT SCH ×2 (09:27→20:28)
[2020-01-13] MEDS ORDERED: Rocephin IV ×2 (11:32→11:39)
[2020-01-13] MEDS ORDERED: FERR325E14 PO (11:33)
[2020-01-13] MEDS ORDERED: LORA-476 PO (11:36)
--- NOTE | 2020-01-13 12:00 | NUR ---
ZOFRAN IVP GIVEN FOR NAUSEA. NO SIGNS OF DISTRESS NOTED. WILL CONTINUE TO MONITOR.
--- NOTE | 2020-01-13 13:15 | NUR ---
AFTERNOON MEDICATIONS GIVEN. NO SIGNS OF DISTRESS NOTED. PT. IS ASLEEP AND IN BED. WILL CONTINUE TO MONITOR.
--- NOTE | 2020-01-13 14:50 | NUR ---
CALLED CASE MANAGEMENTHAILE, ON PT'S DISCHARGE PLAN FOR TODAY. NO NEW UPDATES ON PT'S PLACEMENT TO A SNF. WILL CONTINUE TO MONITOR.
--- NOTE | 2020-01-13 15:23 | NUR ---
01/13/20 FOLLOW UP COMPLETED PLEASE REFER TO NUTRITION ASSESSMENT UNDER CARE ACTIVITY FOR ESTIMATED NUTRITIONAL NEEDS. 1. CONTINUE GLUCERNA GOAL RATE TO 45 ML/HR X 24 HR -PROVIDES 1296 CALORIES, 65 GM OF PROTEIN WHICH MEETS 100% OF ESTIMATED NUTRIENT NEEDS 2. CONTINUE WATER FLUSH TO [address] TO FOLLOW-UP 2-3 DAYS, HIGH RISK WAYNE SIERRA, RD
--- NOTE | 2020-01-13 17:10 | NUR ---
PT. IS CHANGED, CLEANED, AND TURNED. NO SIGNS OF DISTRESS NOTED. PT. SHAKES HEAD INDICATING NO PAIN. WILL CONTINUE TO MONITOR.
--- NOTE | 2020-01-13 17:55 | NUR ---
PT ASLEEP AT THIS TIME NOT IN ANY DISTRESS. PT REMAINS ON DOCUMENTED VENT SETTINGS. TRACH IS SECURE WITH A PATENT AIRWAY. VENT ALARMS ON AND FUNCTIONING.
--- NOTE | 2020-01-13 18:40 | NUR ---
RECEIVED CRITICAL LAB OF POSITIVE COVID-19 FROM LAB. WILL REPORT TO MD. WILL CONTINUE TO MONITOR.
--- NOTE | 2020-01-13 19:15 | NUR ---
ENDORSED TO HOSPITAL INSURANCE CLERK NURSE, ZENAIDA, FOR CONTINUITY OF CARE.
--- NOTE | 2020-01-13 19:16 | NUR ---
RECEIVED BEDSIDE REPORT FROM DAY SHIFT NURSE, NITO FOR CONTINUITY OF CARE. PT. IS ALERT, AWAKE AND IN BED. PT TRACH TO VENT. VENT SETTINGS: AC/VC FIO2 35% PEEP 8 RR 12. SAT WELL 100%. SKIN INTACT. GTUBE IN PLACE WITH GLUCERNA AT 45ML/H WITH WATER FLUSH OF 100ML /Q4H. IV ON RAC 20G, PATENT, INTACT, AND ASYMPTOMATIC, CURRENTLY WITH NS RUNNING AT 60ML/HR. PT IS COVID+. DX PNA. ISOLATION PER PROTOCOL. SAFETY MEASURES ARE IN PLACE. CALL LIGHT IS WITHIN REACH. BED IN LOW POSITION. WILL CONTINUE TO MONITOR.
--- NOTE | 2020-01-13 20:28 | NUR ---
GIVEN ELIQUIS MD ORDERED. PT TOLERATED WELL. WILL CONTINUE TO MONITOR.
--- NOTE | 2020-01-13 22:59 | NUR ---
PROVIDED SUCTION 2TIMES, PT TOLERATED WELL.
[2020-01-14] VITALS: BP 110/65
--- NOTE | 2020-01-14 00:05 | NUR ---
VS CHECKED, WITHIN PT'S BASELINE. WILL CONTINUE TO MONITOR.
--- NOTE | 2020-01-14 02:12 | NUR ---
PT SLEEPING IN BED COMFORTABLY. NO ACUTE DISTRESS NOTED.
--- NOTE | 2020-01-14 03:47 | NUR ---
0330 TRACH CARE DONE . HME AND SXN MORALES CHANGED. PATIENT HAS BRIGHT RED BLOODY CLOTS.
[2020-01-14 04:00] VITALS: BP 115/68
--- NOTE | 2020-01-14 04:05 | NUR ---
VS CHECKED, WITHIN PT'S BASELINE. WILL CONTINUE TO MONITOR.
--- NOTE | 2020-01-14 06:56 | NUR ---
PT IN STABLE CONDITION. WILL ENDORSE PT TO DAY SHIFT NURSE FOR CONTINUOUS CARE.
--- NOTE | 2020-01-14 07:00 | NUR ---
RECEIVED REPORT FROM NIGHT NURSE FOR CONTINUITY OF CARE, PT IS STABLE, AAOX2, PT IS TRACH TO VENT, PT HAS RIGHT AC 20G INFUSING NORMAL SALINE AT 60 ML/H, SKIN INTACT, PT HAS A WAHL CATHETER, PT ON FEEDING TUBE WITH GLUCERNA AT 45 ML/H, BED IN LOW POSITION, SAFETY MEASURES IN PLACE, CALL LIGHT WITHIN REACH, ALL NEEDS MET, WILL CONTINUE TO MONITOR.
[2020-01-14 07:02] LABS: BASOPHILS # (AUTO) 0.1 K/uL (0.00-0.22); BASOPHILS % (AUTO) 1.2 % (0.0-2.0); EOSINOPHILS # (AUTO) 0.2 K/uL (0-0.4); EOSINOPHILS % (AUTO) 4.3 % (0.0-4.0); HEMATOCRIT 26.8 % (36-52); HEMOGLOBIN 8.7 g/dL (12.0-18.0); LYMPHOCYTES # (AUTO) 1.8 K/uL (2.0-11.5); LYMPHOCYTES % (AUTO) 30.8 % (20.5-51.1); MEAN CORPUSCULAR HEMOGLOBIN 30 pg (27-31); MEAN CORPUSCULAR HGB CONC 32 g/dL (33-37); MEAN CORPUSCULAR VOLUME 92.3 fL (80-94); MONOCYTES # (AUTO) 0.5 K/uL (0.8-1.0); MONOCYTES % (AUTO) 8.2 % (1.7-9.3); NEUTROPHILS # (AUTO) 3.2 K/uL (1.8-7.7); NEUTROPHILS % (AUTO) 55.5 % (42.2-75.2); PLATELET COUNT (AUTO) 466 K/uL (140-450); RED BLOOD CELL COUNT(AUTO) 2.91 MIL/uL (4.20-6.10); RED CELL DISTRIBUTION WIDTH 15.9 % (11.6-13.7); WHITE BLOOD COUNT (AUTO) 5.7 K/uL (4.8-10.8)
[2020-01-14 07:14] LABS: ANION GAP 7.1 (8-16); CARBON DIOXIDE 33.8 mmol/L (21-32); CREATININE 0.4 mg/dL (0.6-1.3); POTASSIUM 3.9 mmol/L (3.5-5.1)
[2020-01-14 08:00] VITALS: BP 97/63
[2020-01-14] MEDS ORDERED: BENZONATATE 100 MG CAPLF PO PRN (08:40)
[2020-01-14] MEDS: FERROUS SULFATE 325 MG TABEC PO SCH (09:19)
[2020-01-14] MEDS: AMIODARONE 200 MG TAB GT SCH (09:19)
[2020-01-14] MEDS: APIXABAN 2.5 MG TAB GT SCH ×2 (09:21→20:14)
[2020-01-14] MEDS: PANTOPRAZOLE 40 MG INJ VIAL IVP SCH (09:21)
[2020-01-14] MEDS: ASCORBIC ACID 500 MG TAB PO SCH (09:22)
[2020-01-14] MEDS: PHENAZOPYRIDINE 100 MG TAB PO SCH ×3 (09:22→17:23)
[2020-01-14] MEDS: ZINC SULF 220 MG CAP PO SCH (09:23)
[2020-01-14] MEDS: guaiFENesin DM 200/20 MG-10 ML 10 ML UDC PO PRN (09:23)
--- NOTE | 2020-01-14 09:46 | NUR ---
ADMINISTERED SCHEDULED MEDICATION, ROBITUSSIN FOR COUGH, MEDICATION EDUCATION PROVIDED, PT NODDED UNDERSTANDING, PT TOLERATED WELL, PT IS STABLE, NO SIGNS OF DISTRESS NOTED, TRACH TO VENT, CALL LIGHT WITHIN REACH
--- NOTE | 2020-01-14 11:20 | NUR ---
PT SITTING IN BED WATCHING TV, PT IS STABLE NO SIGNS OF DISTRESS NOTED, PT TRACH TO VENT, ALL NEEDS MET, CALL LIGHT WITHIN REACH.
[2020-01-14 12:00] VITALS: BP 114/69
[2020-01-14] MEDS: NACL 0.9% 1,000 ML IV SCH (13:34)
--- NOTE | 2020-01-14 13:48 | NUR ---
ADMINISTERED SCHEDULED MEDICATION, MEDICATION EDUCATION GIVEN, PT TOLERATED MEDICATION WELL, PT IS STABLE, NO SIGNS OF DISTRESS NOTED, PT TRACH TO VENT, ALL NEEDS MET, CALL LIGHT WITHIN REACH.
--- NOTE | 2020-01-14 15:17 | NUR ---
EMPTIED 1500 ML OF ORANGE URINE FROM THE WAHL CATH, PT IS STABLE, RESPIRATIONS ARE EVEN AND UNLABORED ON VENT, PT TRACH TO VENT, PT FEEDING TUBE IS ONGOING, ALL NEEDS MET AT THIS TIME, CALL LIGHT WITHIN REACH.
[2020-01-14 16:00] VITALS: BP 102/61
--- NOTE | 2020-01-14 17:38 | NUR ---
ADMINISTERED SCHEDULED MEDICATION, MEDICATION EDUCATION GIVEN, PT TOLERATED MEDICATION WELL. CHANGED PT FEEDING TUBE AND ATTACHED TO PT G-TUBE, PT TOLERATING FEEDING WELL, PT IS STABLE, TRACH TO VENT, NO SIGNS OF DISTRESS NOTED, CALL LIGHT WITHIN REACH.
--- NOTE | 2020-01-14 19:24 | NUR ---
GAVE REPORT TO NIGHT NURSE FOR CONTINUITY OF CARE, PT IS STABLE.
--- NOTE | 2020-01-14 19:25 | NUR ---
RECEIVED REPORT FORM AURELIANO RN DAYSHIFT NURSE AT BEDSIDE FOR CONTINUITY OF CARE, PT IN STABLE CONDITION.
[2020-01-14] MEDS ORDERED: INSULIN LISPRO SLIDING SCALE 100 UNITS/ML VIAL SUBQ PRN (19:50)
[2020-01-14] MEDS ORDERED: GLUCAGON 1 MG VIAL IVP PRN (19:50)
[2020-01-14] MEDS ORDERED: DEXTROSE 50% 50 ML SYR IVP PRN (19:50)
--- NOTE | 2020-01-14 19:50 | NUR ---
SPOKE WITH RESIDENT MD TAVAERZ REGARDING PT HX OF DM2 BUT NO FINGERSTICKS ORDERED. HE ORDERED, FINGERSTICK WELL S/S HUMALOG.
[2020-01-14 20:00] VITALS: BP 107/64
--- NOTE | 2020-01-14 20:20 | NUR ---
PT IN BED AOX2-3, PT IS TRACH TO VENT, PT RESPIRATIONS EVEN AND UNLABORED ON CURRENT VENT SETTINGS. LUNG SOUNDS DIMINISHED. PT HAS GT TUBE RUNNING GLUCERNA AT 45MLS/HR ORDERED. NO RESIDUAL NOTED. PT WAS SUCTIONED X2 VERY SCANT AMOUNT OF BLOOD TINGED PHLEGM. PT ALSO HAS WAHL CATHETER INTACT AND DRAINING BLOOD TINGED URINE. PT DENIES ANY PAIN. ALL FALLS PRECAUTIONS IN PLACE. V/S FOLLOWS: T 98.1 P 88 R 36 B/P 107/64 02 99% WITH ALL CURRENT VENT SETTINGS.
[2020-01-14] MEDS: BLOOD GLUCOSE MONITORING 1 DEV DEV FS SCH (20:49)
--- NOTE | 2020-01-14 21:00 | NUR ---
PT GIVEN ORDERED ELIQUIS VIA GT. WELL FINGERSTICK BLOOD GLUCOSE IS 118. ALL REQUESTED NEEDS ATTENDED.ALL FALLS AND ASPIRATIONS PRECAUTIONS IN PLACE.
--- NOTE | 2020-01-14 22:00 | NUR ---
PT TURNED AND REPOSITIONED IN BED, ALL REQUESTED NEEDS ATTENDED BY STAFF.
[2020-01-15] VITALS: BP_SYST 106; BP_SYST 99; BP_DIAS 58
--- NOTE | 2020-01-15 | NUR ---
PT IN BED RESTING NO S/S OF PAIN OR DISTRESS NOTED. V/S FOLLOWS: T 98.8 P 83 R 32 B/P 106/58 02 97% WITH ALL CURRENT VENT SETTINGS. ALL FLUIDS RUNNING ORDERED AND ALL ORDERED PRECAUTIONS IN PLACE.
[2020-01-15 04:00] VITALS: BP 99/58
--- NOTE | 2020-01-15 04:00 | NUR ---
PT IN BED, HE WAS TURNED AND REPOSITIONED IN BED V/S FOLLOWS; T 98.2 P 80 R 30 B/P 99/58 02 98% WITH ALL CURRENT VENT SETTINGS. GT RUNNING AT 45MLS/HR ORDERED. N/S FLUIDS RUNNING AT 60MLS/HR ORDERED. ALL ASPIRATIONS , FALLS AND DROPLET PRECAUTIONS IN PLACE.
--- NOTE | 2020-01-15 06:00 | NUR ---
NEW IV SITE PROVIDED TO RIGHT HAND 22G SALINE LOCKED AND 22G. FINGERSTICK IS 130, NO HUMALOG COVERAGE NEEDED.
[2020-01-15 06:43] LABS: BASOPHILS % (AUTO) 0.7 % (0.0-2.0); EOSINOPHILS # (AUTO) 0.2 K/uL (0-0.4); EOSINOPHILS % (AUTO) 3.7 % (0.0-4.0); HEMATOCRIT 26.1 % (36-52); HEMOGLOBIN 8.4 g/dL (12.0-18.0); LYMPHOCYTES # (AUTO) 1.8 K/uL (2.0-11.5); LYMPHOCYTES % (AUTO) 29.3 % (20.5-51.1); MEAN CORPUSCULAR HEMOGLOBIN 30 pg (27-31); MEAN CORPUSCULAR HGB CONC 32 g/dL (33-37); MEAN CORPUSCULAR VOLUME 92.5 fL (80-94); MONOCYTES # (AUTO) 0.6 K/uL (0.8-1.0); MONOCYTES % (AUTO) 9.8 % (1.7-9.3); NEUTROPHILS # (AUTO) 3.5 K/uL (1.8-7.7); NEUTROPHILS % (AUTO) 56.5 % (42.2-75.2); PLATELET COUNT (AUTO) 500 K/uL (140-450); RED BLOOD CELL COUNT(AUTO) 2.82 MIL/uL (4.20-6.10); WHITE BLOOD COUNT (AUTO) 6.2 K/uL (4.8-10.8)
[2020-01-15] MEDS: BLOOD GLUCOSE MONITORING 1 DEV DEV FS SCH ×4 (06:44→21:39)
[2020-01-15 07:06] LABS: ALBUMIN 1.9 g/dL (3.4-5.0); ANION GAP 8.5 (8-16); CARBON DIOXIDE 32.1 mmol/L (21-32); CREATININE 0.5 mg/dL (0.6-1.3); POTASSIUM 3.6 mmol/L (3.5-5.1); TOTAL BILIRUBIN 0.2 mg/dL (0.0-1.0)
--- NOTE | 2020-01-15 07:15 | NUR ---
RECEIVED REPORT FROM NIGHT NURSE FOR CONTINUITY OF CARE, PT IS STABLE, AAOX3, TRACH TO VENT, PT HAS RIGHT AC 20G INFUSING NORMAL SALINE AT 60 ML/H, RT HAND 22G ACCIDENTALLY DISLODGED, IV CATHETER INTACT, MINIMAL BLEEDING NOTED. SKIN INTACT, PT HAS A WAHL CATHETER DRAINING TO GRAVITY WITH YELLOW URINE, PT ON FEEDING TUBE WITH GLUCERNA AT 45 ML/H. SAFETY AND DROPLET PRECAUTIONS IN PLACE, PATIENT + COVID. BED LOCKED IN LOWEST POSITION. CALL LIGHT WITHIN REACH, WILL CONTINUE TO MONITOR PATIENT.
--- NOTE | 2020-01-15 07:28 | NUR ---
PT RECEIVED ON PC 22 f18 PEEP 8 35% VENT CHECK COMPLETED ROUGHLY 07:30 ALONG W/ PLACING NEW HME & NIELSEN PT SAT 99% HR 79 VENT PLUGGED INTO RED OUTLET BMV @ BEDSIDE
[2020-01-15 07:46] VITALS: BP 95/58
[2020-01-15] MEDS: NACL 0.9% 1,000 ML IV SCH ×2 (08:01→21:39)
[2020-01-15] MEDS: ASCORBIC ACID 500 MG TAB PO SCH (08:56)
[2020-01-15] MEDS: PANTOPRAZOLE 40 MG INJ VIAL IVP SCH (08:56)
[2020-01-15] MEDS: FERROUS SULFATE 300 MG/5 ML UDC GT SCH (08:56)
[2020-01-15] MEDS: ZINC SULF 220 MG CAP PO SCH (08:57)
[2020-01-15] MEDS: APIXABAN 2.5 MG TAB GT SCH ×2 (08:57→21:29)
[2020-01-15] MEDS: AMIODARONE 200 MG TAB GT SCH (08:57)
[2020-01-15] MEDS: PHENAZOPYRIDINE 100 MG TAB PO SCH ×3 (08:57→17:23)
--- NOTE | 2020-01-15 09:15 | NUR ---
GTUBE AUSCULTATED FOR PLACEMENT, 0ML OF RESIDUAL NOTED. PT REQUESTED FOR PRN COUGH MEDICATION. WILL GIVE REQUESTED. ORDERED MEDICATIONS CRUSHED AND GIVEN VIA GTUBE WITH 150 ML OF WATER. PATIENT TOLERATED MEDICATIONS WELL. PT HAS NO COMPLAINTS AT THIS TIME. SAFETY AND DROPLET PRECAUTIONS IN PLACE, CALL LIGHT WITHIN REACH, WILL CONTINUE TO MONITOR PATIENT.
[2020-01-15] MEDS: guaiFENesin DM 200/20 MG-10 ML 10 ML UDC PO PRN (09:25)
--- NOTE | 2020-01-15 10:40 | NUR ---
PATIENT'S SON, MICHEL, CALLED. UPDATED HIM WITH PLAN OF CARE AND POSSIBLE DISCHARGE. HE VERBALIZED UNDERSTANDING. PATIENT CURRENTLY RESTING IN BED COMFORTABLY. WILL CONTINUE TO MONITOR PATIENT.
[2020-01-15 12:50] VITALS: BP 101/65
--- NOTE | 2020-01-15 13:00 | NUR ---
BLOOD SUGAR 106, NO COVERAGE NEEDED. ORDERED MEDICATIONS GIVEN. PATIENT TOLERATED THEM WELL. PATIENT AWARE OF NEXT DOSE OF GUAIFENISEN. PATIENT HAS NO COMPLAINTS AT THIS TIME. SAFETY AND DROPLET PRECAUTIONS IN PLACE, CALL LIGHT WITHIN REACH. WILL CONTINUE TO MONITOR PATIENT.
[2020-01-15] MEDS ORDERED: MORPHINE SULFATE 2 MG/ML SYR IVP PRN (14:05)
[2020-01-15] MEDS: guaiFENesin 20 MG/ML UDC PO PRN (14:18)
--- NOTE | 2020-01-15 14:20 | NUR ---
PRN COUGH MEDICATION AND PRN PAIN MEDICATION GIVEN FOR PLEURITIC CHEST PAIN REQUESTED. PATIENT TOLERATED THEM WELL. WILL CONTINUE TO MONITOR PATIENT.
--- NOTE | 2020-01-15 15:00 | NUR ---
CALLED [facility] AND FOLLOW UP TRANSFER OF PATIENT, THEY SAID THEY DON'T KNOW ABOUT THE TRANSFER.
[2020-01-15 16:00] VITALS: BP 94/54
--- NOTE | 2020-01-15 17:30 | NUR ---
BLOOD SUGAR 98, NO COVERAGE NEEDED. ORDERED MEDICATION GIVEN. NEW TUBE FEEDING STARTED. PATIENT TOLERATED IT WELL. NO COMPLAINTS AT THIS TIME. WILL CONTINUE TO MONITOR PATIENT.
--- NOTE | 2020-01-15 19:00 | NUR ---
RECEIVED BEDSIDE REPORT FROM DAY SHIFT NURSE. PATIENT IS AWAKE, ALERT, AND COOPERATIVE. RESPIRATION EVEN UNLABORED ON TRACH TO VENT. SATING 98%. NO DISTRESS NOTED. SKIN IS WARM AND DRY. IV PATENT AND INTACT. G-TUBE FEEDING RUNNING 45CC. WAHL CATHETER DRAINING ORANGE URINE NOTED. PLAN OF CARE WAS DISCUSSED. ALL SAFETY MEASURE IN PLACE. BED IS AT LOW POSITION. CALL LIGHT WITHIN REACH. WILL CONTINUE TO MONITOR.
--- NOTE | 2020-01-15 19:05 | NUR ---
REPORT GIVEN TO TMD TEACHER ASSISTANT NURSE. PATIENT IN STABLE CONDITION.
[2020-01-15 20:00] VITALS: BP 107/60
--- NOTE | 2020-01-15 20:05 | NUR ---
INITIAL ASSESSMENT DONE. VITALS WERE TAKEN. CHECKED G-TUBE RESIDUAL OBTAINED 10CC. WILL CONTINUE TO MONITOR.
--- NOTE | 2020-01-15 21:39 | NUR ---
ALL SCHEDULED MEDS WERE GIVEN PER ORDER. NO ASE NOTED. WILL CONTINUE TO MONITOR.
--- NOTE | 2020-01-15 22:49 | NUR ---
SUCTIONED PATIENT. OBTAINED SMALL AMOUNT OF WHITE CREAMY SECRETION. WILL CONTINUE TO MONITOR.
[2020-01-16] VITALS: BP 111/51
--- NOTE | 2020-01-16 00:10 | NUR ---
VITALS WERE TAKEN. PATIENT IN STABLE CONDITION. NO DISTRESS NOTED. WILL CONTINUE TO MONITOR.
--- NOTE | 2020-01-16 02:58 | NUR ---
CHECKED PATIENT. PATIENT SLEEPING RESPIRATION EVEN UNLABORED ON TRACH TO VENT. SATING 98%. NO DISTRESS NOTED. WILL CONTINUE TO MONITOR.
[2020-01-16 04:00] VITALS: BP 90/60
--- NOTE | 2020-01-16 04:00 | NUR ---
VITALS WERE TAKEN. PATIENT IN STABLE CONDITION. NO DISTRESS NOTED. SUCTIONED PATIENT OBTAINED SMALL AMOUNT OF WHITE CREAMY SECRETION. WILL CONTINUE TO MONITOR
[2020-01-16 06:10] LABS: BASOPHILS % (AUTO) 0.5 % (0.0-2.0); EOSINOPHILS # (AUTO) 0.3 K/uL (0-0.4); EOSINOPHILS % (AUTO) 4.7 % (0.0-4.0); HEMOGLOBIN 8.6 g/dL (12.0-18.0); LYMPHOCYTES # (AUTO) 2.3 K/uL (2.0-11.5); LYMPHOCYTES % (AUTO) 33.9 % (20.5-51.1); MEAN CORPUSCULAR HEMOGLOBIN 31 pg (27-31); MEAN CORPUSCULAR HGB CONC 33 g/dL (33-37); MEAN CORPUSCULAR VOLUME 92.4 fL (80-94); MONOCYTES # (AUTO) 0.6 K/uL (0.8-1.0); MONOCYTES % (AUTO) 8.9 % (1.7-9.3); NEUTROPHILS # (AUTO) 3.5 K/uL (1.8-7.7); PLATELET COUNT (AUTO) 577 K/uL (140-450); RED BLOOD CELL COUNT(AUTO) 2.81 MIL/uL (4.20-6.10); RED CELL DISTRIBUTION WIDTH 16.2 % (11.6-13.7); WHITE BLOOD COUNT (AUTO) 6.8 K/uL (4.8-10.8)
[2020-01-16 06:37] LABS: ALBUMIN 2.1 g/dL (3.4-5.0); ANION GAP 7.6 (8-16); CARBON DIOXIDE 33.3 mmol/L (21-32); CREATININE 0.5 mg/dL (0.6-1.3); POTASSIUM 3.9 mmol/L (3.5-5.1); TOTAL BILIRUBIN 0.2 mg/dL (0.0-1.0)
[2020-01-16] MEDS: BLOOD GLUCOSE MONITORING 1 DEV DEV FS SCH ×4 (06:39→20:26)
--- NOTE | 2020-01-16 07:07 | NUR ---
ENDORSED PATIENT TO DAY SHIFT NURSE. PATIENT IN STABLE CONDITION.
--- NOTE | 2020-01-16 07:08 | NUR ---
RECEIVED REPORT FROM EVENT MANAGER NURSE DOE-MOMO. PT RESTING IN BED, AOX4-APHASIC, ITALIAN SPEAKING, ON TRACH TO VENT FIO2 28, WITH RIGHT AC #20G RUNNING NS @60ML/HR AND G-TUBE FEEDING GLUCERNA RUNNING 45ML/HR, WATER FLUSH Q8H- ZERO RESIDUAL. WAHL CATHETER IN PLACE. DISCUSSED PLAN OF CARE AND PT VERBALIZED UNDERSTANDING. CALL LIGHT WITHIN REACH. NO S/S OF RESPIRATORY DISTRESS OR DISCOMFORT NOTED AT THIS TIME. WILL CONTINUE TO MONITOR.
[2020-01-16 08:00] VITALS: BP 96/56
[2020-01-16] MEDS: AMIODARONE 200 MG TAB GT SCH (08:28)
[2020-01-16] MEDS: APIXABAN 2.5 MG TAB GT SCH ×2 (08:30→20:28)
[2020-01-16] MEDS: FERROUS SULFATE 300 MG/5 ML UDC GT SCH (08:30)
[2020-01-16] MEDS: PANTOPRAZOLE 40 MG INJ VIAL IVP SCH (08:31)
[2020-01-16] MEDS: ASCORBIC ACID 500 MG TAB PO SCH (08:32)
[2020-01-16] MEDS: PHENAZOPYRIDINE 100 MG TAB PO SCH ×3 (08:32→17:45)
--- NOTE | 2020-01-16 08:32 | NUR ---
SCHEDULED MEDICATIONS GIVEN AND TOLERATED WELL. CALL LIGHT WITHIN REACH. NO S/S OF RESPIRATORY DISTRESS OR DISCOMFORT NOTED AT THIS TIME. WILL CONTINUE TO MONITOR.
[2020-01-16] MEDS: ZINC SULF 220 MG CAP PO SCH (08:33)
--- NOTE | 2020-01-16 08:40 | NUR ---
CALLED TO BEDSIDE PT DESAT TO 88% PT WAS Sx W/ SMALL AMT CLR SECRETIONS PT IS SAT 96% @ FIO2 32% TITRATED FROM 28% HR 76 WILL CONTINUE TO MONITOR
--- NOTE | 2020-01-16 08:41 | NUR ---
VITAL SIGNS IMPROVED BP 96/56, HR 77, TEMP 98.4%, SPO2 96%
--- NOTE | 2020-01-16 09:10 | NUR ---
ASSISTED LINING SCRUBBER BELEN WITH LINEN CHANGE. PT TOLERATED WELL. CALL LIGHT WITHIN REACH. NO S/S OF RESPIRATORY DISTRESS OR DISCOMFORT NOTED AT THIS TIME. WILL CONTINUE TO MONITOR.
--- NOTE | 2020-01-16 09:12 | NUR ---
PT WAS RETURNED TO 28% FIO2 PT SAT 100% AT THIS TIME W/ NO DISTRESS NOTED
[2020-01-16] MEDS ORDERED: Rocephin IV (09:19)
[2020-01-16] MEDS ORDERED: SULF-59 PO (10:09)
[2020-01-16] MEDS: ALBUTEROL HFA MDI 90 MCG/ACTUATION 8 GM INH PRN (10:57)
--- NOTE | 2020-01-16 11:30 | NUR ---
BLOOD GLUCOSE 123- NO INSULIN COVERAGE NEEDED.
[2020-01-16 12:00] VITALS: BP 92/52
--- NOTE | 2020-01-16 12:45 | NUR ---
SCHEDULED MEDICATION PYRIDIUM AND ROCEPHIN GIVEN AND TOLERATED WELL. CALL LIGHT WITHIN REACH. NO S/S OF RESPIRATORY DISTRESS OR DISCOMFORT NOTED AT THIS TIME. WILL CONTINUE TO MONITOR.
--- NOTE | 2020-01-16 14:35 | NUR ---
01/16/20 RD FOLLOW UP COMPLETED PLEASE REFER TO NUTRITION ASSESSMENT UNDER CARE ACTIVITY FOR ESTIMATED NUTRITIONAL NEEDS. 1. CONTINUE GLUCERNA 1.2 @ 45 ML/HR X 24 HR -PROVIDES 1296 CALORIES, 65 GM OF PROTEIN WHICH MEETS 100% OF ESTIMATED NUTRIENT NEEDS 2. CONTINUE WATER FLUSH TO 100 ML Q4H 3. CONTINUE ZINC AND VITAMIN C DAILY 4. RD TO FOLLOW-UP 2-3 DAYS, HIGH RISK WAYNE SIERRA RD
--- NOTE | 2020-01-16 16:30 | NUR ---
BLOOD GLUCOSE 121. NO INSULIN COVERAGE NEEDED.
[2020-01-16] MEDS: NACL 0.9% 1,000 ML IV SCH (17:45)
--- NOTE | 2020-01-16 17:46 | NUR ---
SCHEDULED MEDICATION GIVEN AND TOLERATED WELL. NEW TUBE FEEDING STARTED. CALL LIGHT WITHIN REACH. NO S/S OF RESPIRATORY DISTRESS OR DISCOMFORT NOTED AT THIS TIME. WILL CONTINUE TO MONITOR.
[2020-01-16 18:53] VITALS: BP 100/50
--- NOTE | 2020-01-16 19:05 | NUR ---
1700 VENT CHECK NOT PERFORMED DUE TO BEING UN-AVAILABLE AT INTUBATION
--- NOTE | 2020-01-16 19:54 | NUR ---
RECEIVED BEDSIDE REPORT FROM DAY RN. PT IS AAOX4. [place] SPEAKING. PT APHASIC ABLE TO MOUTH WORDS. PT IS TRACH TO VENT. VENT SETTINGS:FIO2 28% RR 18 PEEP 8. SAT 95% RR HIGH 30. HR 86. PT IS ABLE TO USE CALL LIGHT AND MAKE NEEDS KNOWN. C/C SOB, FEVER, DX RESP FAILURE COVID +. ISOLATION PER PROTOCOL. IV ON RAC 20G IVF INFUSING PER ORDERS. WAHL DRAINING BRIGHT ORANGE URINE S/E OF PYRIDIUM. POC DISCUSSED WITH PT. CALL LIGHT IS WITHIN REACH. WILL CONTINUE TO MONITOR.
[2020-01-16 20:00] VITALS: BP 95/56
--- NOTE | 2020-01-16 20:28 | NUR ---
VSS. FRANCISCO MEDICATION GIVEN CRUSHED VIA G-TUBE. PT WITH NO RESIDUALS/ BG 112 NO COVERAGE NEED. PT REQUESTING COUGH MEDICINE.
[2020-01-16] MEDS: guaiFENesin 20 MG/ML UDC PO PRN (20:37)
--- NOTE | 2020-01-16 20:37 | NUR ---
ADMINISTERED PRN ROBITUSSIN FOR COUGH. SUCTION SMALL AMOUNT OF WHITE/CREAMY SECRETION. ASSIST PT WITH ORAL CARE PT ABLE TO BRUSH OWN TEETH. ALL NEEDS MET. CALL LIGHT IS WITHIN REACH. WILL CONTINUE TO MONITOR.
--- NOTE | 2020-01-16 21:45 | NUR ---
PT IS ON FACETIME WITH AND SON USING CELL PHONE. NO S/S OF DISTRESS. CALL LIGHT IS WITHIN REACH
[2020-01-17] VITALS: BP 97/56
--- NOTE | 2020-01-17 | NUR ---
VITAL SIGNS ARE WITHIN NORMAL LIMITS. ALL SAFETY MEASURES ARE IN PLACE. WILL CONTINUE TO MONITOR.
--- NOTE | 2020-01-17 02:09 | NUR ---
MADE HOURLY ROUNDS. PT IS AWAKE HOB ELEVATED AT 60 DEGREES REMAINS TRACH TO VENT WITH NO S/S OF DISTRESS. CALL LIGHT IS WITHIN REACH.
[2020-01-17 04:00] VITALS: BP 103/61
--- NOTE | 2020-01-17 04:14 | NUR ---
VITAL SIGNS ARE WITHIN NORMAL LIMITS. SUCTION SMALL AMOUNT OF PINK TINGED SECRETIONS. PT TOLERATED WELL. ALL SAFETY MEASURES ARE IN PLACE.
[2020-01-17] MEDS: BLOOD GLUCOSE MONITORING 1 DEV DEV FS SCH ×3 (06:19→16:42)
--- NOTE | 2020-01-17 06:22 | NUR ---
BG 120 NO COVERAGE NEEDED. ALL NEEDS MET AT THIS TIME. CALL LIGHT IS WITHIN REACH.
[2020-01-17 06:24] LABS: ANION GAP 6.8 (8-16); CREATININE 0.5 mg/dL (0.6-1.3); POTASSIUM 3.8 mmol/L (3.5-5.1)
[2020-01-17 06:28] LABS: BASOPHILS % (AUTO) 0.5 % (0.0-2.0); EOSINOPHILS # (AUTO) 0.3 K/uL (0-0.4); EOSINOPHILS % (AUTO) 4.3 % (0.0-4.0); HEMATOCRIT 25.2 % (36-52); HEMOGLOBIN 8.3 g/dL (12.0-18.0); MEAN CORPUSCULAR HEMOGLOBIN 31 pg (27-31); MEAN CORPUSCULAR HGB CONC 33 g/dL (33-37); MEAN CORPUSCULAR VOLUME 92.4 fL (80-94); MONOCYTES # (AUTO) 0.7 K/uL (0.8-1.0); MONOCYTES % (AUTO) 9.7 % (1.7-9.3); NEUTROPHILS % (AUTO) 57.5 % (42.2-75.2); PLATELET COUNT (AUTO) 583 K/uL (140-450); RED BLOOD CELL COUNT(AUTO) 2.73 MIL/uL (4.20-6.10); RED CELL DISTRIBUTION WIDTH 16.8 % (11.6-13.7)
--- NOTE | 2020-01-17 07:16 | NUR ---
GAVE BEDSIDE REPORT TO DAY RN. PT ENDORSED IN STABLE CONDITION.
--- NOTE | 2020-01-17 07:20 | NUR ---
RECEIVED PT FROM VP DESIGN NURSE, NATHAN, PT IS ON A TRACH TO VENT, ASLEEP AND LYING ON THE BD WITH SAFETY PRECAUTION ENFORCED, WITH AN IV LINE ON THE RT AC G.20 WITH IVF NS INFUSING AT 60ML/HR, WAHL CATHETER IN PLACE, WITH G- TUBE ON CONTINUOUS FEEDING OF GLUCERNA AT 45ML/HR AND WATER FLUSH OF 100ML Q8H, NO SIGN OF DISTRESS NOTED AND WILL MONITOR PT.
[2020-01-17 08:00] VITALS: BP 93/55
--- NOTE | 2020-01-17 08:40 | NUR ---
RECEIVED ON A [employer] R860 VENTILATOR PLUGGED INTO RED OUTLET TOLERATING WELL WITHOUT ADVERSE REACTIONS NOTED TO A PORTEX DFEN #7 AIRWAY SECURED WITH A URI TRACH TIE CUFF PRESSURE CHECKED NOTED DENISEO RADICAL-7 CONTINUOS PULSE OXIMETER AT BEDSIDE ON AND FUNCTIONING WELL LOW SATURATION ALARM SET AT 90% AMBU BAG AT BEDSIDE LOC AWAKE AND ALERT GOOD CHEST RISE MOUTHING WORDS DEEP TRACHEAL SUCTION FOR SMALL THIN PALE YELLOW SECRETIONS AIRWAY PATENT
[2020-01-17] MEDS: AMIODARONE 200 MG TAB GT SCH ×2 (09:00→09:16)
[2020-01-17] MEDS: FERROUS SULFATE 300 MG/5 ML UDC GT SCH (09:15)
[2020-01-17] MEDS: ZINC SULF 220 MG CAP PO SCH (09:15)
--- NOTE | 2020-01-17 09:15 | NUR ---
PT WAS GIVEN THE SCHEDULED AM MEDICATIONS VIA G- TUBE, NO RESIDUAL NOTED, TOLERATED AND WILL MONITOR PT.
[2020-01-17] MEDS: ASCORBIC ACID 500 MG TAB PO SCH (09:16)
[2020-01-17] MEDS: PANTOPRAZOLE 40 MG INJ VIAL IVP SCH (09:17)
[2020-01-17] MEDS: PHENAZOPYRIDINE 100 MG TAB PO SCH ×3 (09:19→17:55)
[2020-01-17] MEDS: NACL 0.9% 1,000 ML IV SCH (10:16)
--- NOTE | 2020-01-17 12:05 | NUR ---
GOOD CHEST RISE PRN COUGHING PROTECTIVE SIGNAL OPERATIONS SUPERVISOR TO MONITOR
--- NOTE | 2020-01-17 12:43 | NUR ---
PT'S BLOD GLUCOSE WAS CHECKED AND IS 114 AND NO INSULIN COVERAGE NEEDED. WILL MONITOR PT.
[2020-01-17] MEDS: guaiFENesin 20 MG/ML UDC PO PRN (12:58)
[2020-01-17] MEDS: ALBUTEROL HFA MDI 90 MCG/ACTUATION 8 GM INH PRN (13:59)
--- NOTE | 2020-01-17 13:59 | NUR ---
STABLE GOOD CHEST RISE COUGHING AT THIS TIME BREATH SOUNDS RALES BILATERAL DEEP TRACHEAL SUCTION FOR MODERATE THIN TO FROTHY PALE YELLOW SECRETIONS AIRWAY PATENT
[2020-01-17 14:29] VITALS: BP 98/56
--- NOTE | 2020-01-17 15:58 | NUR ---
RESTING COMFORTABLY WITHOUT EVIDENCE OF RESPIRATORY DISTRESS NOTED GOOD CHEST RISE AIRWAY PATENT
[2020-01-17 16:00] VITALS: BP 98/59
--- NOTE | 2020-01-17 17:40 | NUR ---
CALLED [facility] AT [phone], AND GAVE REPORT TO MOMO FARIAS,DISCHARGED TEACHINGS AND INSTRUCTIONS GIVEN AND MOMO FARIAS VERBALIZED UNDERSTANDING, PT WILL BE GOING TO [address] PER MOMO FARIAS AND WILL BE [facility] SPORT[facility] BY [facility].
--- NOTE | 2020-01-17 17:48 | NUR ---
CALLED THE PT'S SON, LYRIC HERNANDES AT [phone] AND INFORMED THE SON THAT PT WILL BE TRANSFERRED TO [facility] AND GAVE THE FACILITY CONTACT NO, AND SON VERBALIZED UNDERSTANDING.
--- NOTE | 2020-01-17 17:55 | NUR ---
PT WAS GIVEN THE SCHEDULED MEDICATION, NO RESIDUAL NOTED AND WILL MONITOR PT.
--- NOTE | 2020-01-17 18:30 | NUR ---
DISCHARGED PT TO [facility]OMPAN[facility] BY [facility] TRANSPORT PERSONNEL VIA RNEY, IV LINE HEART MONITOR AND ARM BAND WERE REMOVED, PT IS STABLE AT THIS TIME.
== END 2020-01-17 18:30 | DRG 720 ==
LOC: MED 06:05 → EEVIPCON 06:05 → MIC 08:24 → MTU 01-13 05:48
PROVIDERS: ADMIT General Practice; ATTEND General Practice
PROC: 5A1955Z Respiratory Ventilation, Greater than 96 Consecutive Hours (ICD-10-PCS; principal; 2020-01-09)
DX: A41.9 Sepsis, unspecified organism (principal); U07.1 COVID-19; J69.0 Pneumonitis due to inhalation of food and vomit; E43 Unspecified severe protein-calorie malnutrition; J15.6 Pneumonia due to other Gram-negative bacteria; J96.20 Acute and chronic respiratory failure, unspecified whether with hypoxia or hypercapnia; E11.9 Type 2 diabetes mellitus without complications; D50.9 Iron deficiency anemia, unspecified; E83.39 Other disorders of phosphorus metabolism; I48.0 Paroxysmal atrial fibrillation; Y95 Nosocomial condition; Z68.1 Body mass index [BMI] 19.9 or less, adult; Z79.01 Long term (current) use of anticoagulants; Z79.4 Long term (current) use of insulin; Z79.899 Other long term (current) drug therapy; Z93.0 Tracheostomy status; Z93.1 Gastrostomy status; Z78.1 Physical restraint status
CPT/HCPCS: 36415; 36600; 71045; 80048; 80053; 80305; 81003; 82150; 82550; 82553; 82607; 82728; 82746; 82803; 82948; 83036; 83540; 83605; 83615; 83690; 83735; 83880; 84100; 84436; 84439; 84443; 84479; 84484; 85025; 85045; 85379; 85610; 85651; 85730; 86140; 87040; 87070; 87081; 87086; 87186; 87205; 87804; 89220; 93005; 94003; 94640; 96365; 96375; 99291; C9113; J0696; J1644; J2060; J2185; J2250; J2270; J2405; J2543; J3370; J3480; J3535; J7030; J7060; Q0092; U0003-CS